=== PATIENT | male | born 1985 | race African-American/Black ===

== ENCOUNTER 2016-04-24 15:19 | Emergency (ER) | payer OTHER ==
[2016-04-24] MEDS ORDERED: KETOROLAC TROMETHAMINE 60 MG/2 ML VIAL IM ONE (15:27)
[2016-04-24 15:28] VITALS: BP 146/89; PULSE 97; TEMP 98.4; BMI 28.8
[2016-04-24] MEDS ORDERED: KETOROLAC TROMETHAMINE 60 MG/2 ML VIAL ONE (15:48)
--- NOTE | 2016-04-24 16:01 | PDOC ---
History of Present Illness - General Chief Complaint: Edema Stated Complaint: RT INDEX FINGER INFECTION Time Seen by Provider: 04/24/16 15:47 History Source: Patient - History of Present Illness Occurred: reports: other Upper Extremity Pain Location: left: 2nd finger Past History - Past Medical History Allergies/Adverse Reactions: Allergies Allergy/AdvReac Type Severity Reaction Status Date / Time latex Allergy Verified 04/24/16 15:28 Home Medications: Ambulatory Orders Cyclobenzaprine HCl [Flexeril -] 10 mg PO TID #21 tablet 02/01/16 Cephalexin [Keflex] 500 mg PO Q6H #28 capsule 04/24/16 Ibuprofen [Motrin -] 800 mg PO Q6H #20 tablet 04/24/16 Other medical history: SPINA BIFIDA - Surgical History Neurologic Surgery: Yes (HEAD SX( multiple evp sales shunts)) - Psycho/Social/Smoking Cessation Hx Anxiety: No Suicidal Ideation: No Smoking History: Never smoked Have you smoked in the past 12 months: No Hx Alcohol Use: Yes (OCCASIONALLY) Drug/Substance Use Hx: No Substance Use Type: None Review of Systems - Review of Systems Constitutional: No: Chills, Fever *Physical Exam - Vital Signs Last Vital Signs Temp Pulse Resp BP Pulse Ox 98.4 F 97 H 16 146/89 97 04/24/16 15:25 04/24/16 15:25 04/24/16 15:25 04/24/16 15:25 04/24/16 15:25 - Physical Exam General Appearance: Yes: Appropriately Dressed. No: Apparent Distress HEENT: positive: Normal Voice Neck: positive: Supple Respiratory/Chest: negative: Respiratory Distress Extremity: positive: Other (paronychia to R index) Integumentary: positive: Dry, Warm Neurologic: positive: Fully Oriented, Alert, Normal Mood/Affect Procedures - Incision and Drainage I&D Site: Right: Paronychia (R index finger paronychia) Betadine cleansed: Yes Anesthesia: 1% Lidocaine Volume(ml): 6 Blade Size: 11 Attempts: 1 (w/ copious purulent drainage) Iodinated Packin/4 in Complications: none Dressing: Yes Medical Decision Making - Medical Decision Making 04/24/16 15:56 30 yo M, h/o spina bifida, ambulates w/ cane, here w/ paronychia of R index that started last we. No trauma. No f/c. See exam Paronychia -tetanus UTD -I&D -abx -wound check in 2 days 04/24/16 15:57 04/24/16 16:23 *DC/Admit/Observation/Transfer Diagnosis at time of Disposition: Paronychia of finger Qualifiers: Laterality: right Qualified Code(s): L03.011 - Cellulitis of right finger - Discharge Dispostion Disposition: HOME Condition at time of disposition: Improved - Prescriptions Prescriptions: Cephalexin [Keflex] 500 mg PO Q6H #28 capsule Ibuprofen [Motrin -] 800 mg PO Q6H #20 tablet - Patient Instructions Printed Discharge Instructions: DI for Paronychia Additional Instructions: Take medications as directed and return to ED in 2 days for wound check
== END 2016-04-24 16:28 | disposition home or self-care (01) ==
LOC: JERFT 15:19
PROC: 0H9QXZZ Drainage of Finger Nail, External Approach (ICD-10-PCS; principal; 2016-04-24)
PROC: 3E0233Z Introduction of Anti-inflammatory into Muscle, Percutaneous Approach (ICD-10-PCS; 2016-04-24)
DX: L03.011 Cellulitis of right finger (principal)
CPT/HCPCS: 99281-25

== ENCOUNTER 2016-04-26 09:37 | Emergency (ER) | payer OTHER ==
[2016-04-26 09:44] VITALS: BP 139/88; PULSE 99; TEMP 98.6; BMI 28.8
[2016-04-26] MEDS ORDERED: IBUPROFEN 400 MG TABLET (FP) PO ONE ×2 (10:13→10:16)
--- NOTE | 2016-04-26 10:21 | PDOC ---
Suture Removal/Wound Check HPI - History of Present Illness Chief Complaint: Revisit,Wound Recheck Stated Complaint: PACKAGE REMOVAL Time Seen by Provider: 04/26/16 09:48 History Source: Yes: Patient Treated at: [facility] Date of Last ED visit: 04/24/16 - Previous ED Treatment Type of procedure performed on last visit: Yes: I&D of Abscess Tetanus Immunization: Yes: Up to Date Past History - Past Medical History Allergies/Adverse Reactions: Allergies latex Allergy (Verified 04/26/16 09:38) Home Medications: Ambulatory Orders Cyclobenzaprine HCl [Flexeril -] 10 mg PO TID #21 tablet 02/01/16 Cephalexin [Keflex] 500 mg PO Q6H #28 capsule 04/24/16 Ibuprofen [Motrin -] 800 mg PO Q6H #20 tablet 04/24/16 - Immunization History Tetanus Status: Unknown - Social History Smoking Status: Never smoked Suture Removal/Wound Check PE - Physical Exam Laceration/Wound Check Symptoms: denies: Pain, Fever, Chills, Redness Current Severity Level: None Location of Laceration/Wound: right: Finger (well healing paronuchia to R index , packing in place, no active discharge) *Review of Systems - Review of Systems Constitutional: No: Chills, Fever Integumentary: No: Erythema Medical Decision Making - Medical Decision Making 04/26/16 10:13 30-year-old male, history of spina bifida here for wound check for right finger paronychia. Patient status post I and D of right index finger paronychia 2 days ago in ED, had packing placed and sent home on Keflex. States pain has improved and no fever or chills. Patient well-appearing and stable with well healing paronychia on exam, packing removed and Band-Aid placed to site. Dc to complete abx and return for worsening of symptoms 04/26/16 10:22 *DC/Admit/Observation/Transfer Diagnosis at time of Disposition: Visit for wound check - Discharge Dispostion Disposition: HOME Condition at time of disposition: Good - Patient Instructions Additional Instructions: Complete antibiotics and return to ED for worsening of symptoms
== END 2016-04-26 10:27 | disposition home or self-care (01) ==
LOC: JERFT 09:37
DX: Z48.01 Encounter for change or removal of surgical wound dressing (principal)
CPT/HCPCS: 99281-25

== ENCOUNTER 2018-05-07 12:13 | Emergency (ER) | payer OTHER ==
[2018-05-07 12:31] VITALS: BP 140/95; PULSE 102; TEMP 98.6; BMI 27.3
--- NOTE | 2018-05-07 12:43 | PDOC ---
History of Present Illness - General Chief Complaint: Injury Stated Complaint: RT FOOT INJURY Time Seen by Provider: 05/07/18 12:38 History Source: Patient Exam Limitations: No Limitations - History of Present Illness Initial Comments: 05/07/18 13:01 Patient here with complaints of right foot and ankle pain. States 4 days ago, Sunday slipped and twisted right foot causing injury to midfoot and ankle. Has been resting and elevating but has persistent pain. Patient suffers from spina bifida and uses walker to walk but states before this injury had no difficulty ambulating Occurred: reports: just prior to arrival Pain Location: reports: lower extremity Past History - Travel Traveled outside of the country in the last 30 days: No Close contact w/someone who was outside of country & ill: No - Past Medical History Allergies/Adverse Reactions: Allergies Allergy/AdvReac Type Severity Reaction Status Date / Time latex Allergy Verified 04/26/16 09:38 COPD: No Other medical history: spina bifida - Surgical History Neurologic Surgery: Yes (HEAD SX( multiple svp shunts)) - Suicide/Smoking/Psychosocial Hx Smoking History: Never smoked Have you smoked in the past 12 months: No Hx Alcohol Use: Yes (OCCASIONALLY) Drug/Substance Use Hx: No Substance Use Type: None *Physical Exam - Vital Signs Last Vital Signs Temp Pulse Resp BP Pulse Ox 98.6 F 102 H 20 140/95 98 05/07/18 12:29 05/07/18 12:29 05/07/18 12:29 05/07/18 12:29 05/07/18 12:29 - Physical Exam General Appearance: Yes: Nourished, Appropriately Dressed, Apparent Distress, Mild Distress HEENT: positive: CHANTELLE, Normal ENT Inspection, TMs Normal, Pharynx Normal Neck: positive: Supple. negative: Tender Musculoskeletal: negative: Vertebral Tenderness Extremity: positive: Tender, Swelling, Other (tenderness to midfoot, without point tenderness to medial or lateral malleolus, foot has mild deformity but is swollen. Patient states is more swollen than his baseline. Neurovascular is baseline also, mildly limited which is normal for him). negative: Normal Capillary Refill, Normal Inspection, Normal Range of Motion Integumentary: positive: Dry, Warm, Swelling, Ecchymosis Neurologic: positive: court manager II-XII NML intact, Fully Oriented, Alert, Normal Mood/ Affect, Normal Response, Motor Strength 5/5 Moderate Sedation - Procedure Monitoring Vital Signs: Procedure Monitoring Vital Signs Temperature 98.6 F 05/07/18 12:29 Pulse Rate 102 H 05/07/18 12:29 Respiratory Rate 20 05/07/18 12:29 Blood Pressure 140/95 05/07/18 12:29 O2 Sat by Pulse Oximetry (%) 98 05/07/18 12:29 - Post Procedure Assessment Tolerated procedure well: Yes Was a reversal agent used?: Yes Progress Note - Progress Note Progress Note: xrAY negative for fractures or dislocation *DC/Admit/Observation/Transfer Diagnosis at time of Disposition: Moderate right ankle sprain Qualifiers: Encounter type: initial encounter Qualified Code(s): S93.401A - Sprain of unspecified ligament of right ankle, initial encounter - Discharge Dispostion Disposition: HOME Condition at time of disposition: Stable Decision to Admit order: No - Referrals Referrals: Sixto Purcell MD [Staff Physician] - - Patient Instructions Printed Discharge Instructions: DI for Ankle Sprain Additional Instructions: Rest, ice to area on and off for 15 minutes 4-6 times a day Avoid heavy lifting or exercise until pain and swelling is resolved or until further directed Keep area highly elevated to reduce swelling Use splints/Uriel wrap as directed Followup with orthopedist in one to 2 days if not improving, if significantly improved may wait one week for followup with orthopedist May use ibuprofen every 6 hours as needed for pain - Post Discharge Activity
== END 2018-05-07 13:38 | disposition home or self-care (01) ==
LOC: JERFT 12:13
DX: S93.401A Sprain of unspecified ligament of right ankle, initial encounter (principal); W01.0XXA Fall on same level from slipping, tripping and stumbling without subsequent striking against object, initial encounter; Y93.89 Activity, other specified; Y92.89 Other specified places as the place of occurrence of the external cause; Y99.8 Other external cause status; Q05.9 Spina bifida, unspecified; R26.89 Other abnormalities of gait and mobility; Z99.89 Dependence on other enabling machines and devices; Z98.2 Presence of cerebrospinal fluid drainage device
CPT/HCPCS: 73610-TC-RT-FY; 73630-TC-RT-FY; 99281-25